=== PATIENT | female | born 1960 | race Asian ===

== ENCOUNTER → 2017-01-10 | Day surgery (SDC) | payer OTHER ==
--- NOTE | 2017-01-11 18:16 | PATH ---
Surgical Pathology Report Patient Name: REY ALONZO [facility]. Rec. #: [id number] /Age/Gender: 1960 (Age: 56) / F Account: [id number] Location: [facility] Taken: 01/10/2017 Received: 01/10/2017 Reported: 01/11/2017 Physicians: Marcia Jiménez M.D. 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 Electronically Signed Kierra Matta M.D. Gross Description Received in formalin labeled "left breast with density," is a 2.7 x 2.0 x 0.3 cm aggregate of multiple ellison-yellow, irregular to cylindrical portions of fibroadipose tissue. The formalin is filtered and the specimen is entirely submitted in one cassette. Time to formalin fixation: 9 minutes Total formalin fixation time: Approximately 6 hours. 01/10/2017 saudi01/10/2017
== END | disposition home or self-care (01) ==
LOC: FMAMMOTONE 10:15
PROVIDERS: ATTEND Family Medicine Geriatric Medicine
PROC: 0HBU3ZX Excision of Left Breast, Percutaneous Approach, Diagnostic (ICD-10-PCS; principal; 2017-01-10)
DX: N60.12 Diffuse cystic mastopathy of left breast (principal); N60.82 Other benign mammary dysplasias of left breast; R92.2 Inconclusive mammogram
CPT/HCPCS: 19081; 88305-TC; A4648